=== PATIENT | female | born 1995 | race Caucasian/White ===

== ENCOUNTER → 2017-11-01 17:08 | Outpatient (CLI) | payer OTHER, SELFPAY ==
--- NOTE | 2017-11-01 17:15 | DI.RAD.S_ITS ---
PROCEDURE: XR HAND RT MIN 3V INDICATIONS: right index finger pain TECHNIQUE: 3 views of the hand(s) acquired. COMPARISON: None. FINDINGS: Bones: There is a faint linear focus of increased density at the base of the second middle phalanx. Carpal bones are normally aligned. No suspicious bony lesions. Soft tissues: No suspicious soft tissue calcifications. IMPRESSION: Linear increased density at the second middle phalanx as above. This could represent a small avulsion injury and recommend correlation of point tenderness. Dictated by: Krystin Hill M.D. on 11/02/2017 at 16:03 Approved by: Krystin Hill M.D. on 11/02/2017 at 16:04
== END ==
PROVIDERS: PCP Family Medicine; Visit Provider Physician Assistant
DX: M79.644 Pain in right finger(s) (principal)
CPT/HCPCS: 73130